=== PATIENT | male | born 1965 | race American Indian/Alaskan Native ===

== ENCOUNTER 2021-07-02 09:56 | Inpatient (IN) | payer OTHER ==
[2021-07-02] MEDS ORDERED: SODIUM CHLORIDE 0.9% 1000 ML IV SOLN IV ONE (10:17)
--- NOTE | 2021-07-02 10:24 | Emergency Department Report ---
ED General Adult HPI - General Chief complaint: Dyspnea/Respdistress Stated complaint: SEPSIS/DIFFICULTY BREATHING Time Seen by Provider: 07/02/21 10:06 Source: patient, EMS Mode of arrival: Stretcher Limitations: No Limitations - History of Present Illness Initial comments: Patient is 56 years old male with a recent diagnosis of pancreatic cancer appro ximately 8 weeks ago. Patient brought to the emergency room via EMS from home for evaluation of fever chills and shortness of breath started 2 days ago. Patient stated that he is having cough. He denied any chest pain. Patient also denied any vomiting but stated that he is nauseated. Patient is currently on chemotherapy. -: days(s) Associated Symptoms: cough, fever/chills, shortness of breath - Related Data Allergies Allergy/AdvReac Type Severity Reaction Status Date / Time No Known Allergies Allergy Verified 07/02/21 10:03 ED Review of Systems ROS: Stated complaint: SEPSIS/DIFFICULTY BREATHING Other details as noted in HPI Comment: All other systems reviewed and negative Constitutional: chills. denies: fever Respiratory: cough, shortness of breath, SOB with exertion, SOB at rest Cardiovascular: palpitations. denies: chest pain Gastrointestinal: denies: abdominal pain, nausea, vomiting Musculoskeletal: denies: back pain Neurological: denies: headache, weakness ED Past Medical Hx - Past Medical History Previous Medical History?: Yes Hx Diabetes: Yes Hx of Cancer: Yes (PANCRETIC) ED Physical Exam - General Limitations: No Limitations General appearance: alert, in distress - Head Head exam: Present: atraumatic, normocephalic, normal inspection - Eye Eye exam: Present: normal appearance - ENT ENT exam: Present: mucous membranes dry - Neck Neck exam: Present: normal inspection, full ROM. Absent: tenderness, meningismus - Respiratory Respiratory exam: Present: respiratory distress, rales, decreased breath sounds - Cardiovascular Cardiovascular Exam: Present: tachycardia - GI/Abdominal GI/Abdominal exam: Present: soft, normal bowel sounds. Absent: distended, tenderness, guarding, rebound, rigid, organomegaly, mass, bruit, pulsatile mass, hernia - Extremities Exam Extremities exam: Present: normal inspection, full ROM, normal capillary refill. Absent: tenderness - Back Exam Back exam: Present: normal inspection, full ROM. Absent: CVA tenderness (R), CVA tenderness (L) - Neurological Exam Neurological exam: Present: alert, oriented X3, CN II-XII intact, normal gait, reflexes normal. Absent: motor sensory deficit - Psychiatric Psychiatric exam: Present: normal mood - Skin Skin exam: Present: warm, intact, normal color ED Course Vital Signs 07/02/21 07/02/21 07/02/21 10:02 10:14 10:16 Temperature 99.7 F H Pulse Rate 125 H 126 H Respiratory 28 H 28 H Rate Blood Pressure Blood Pressure 108/66 [Right] O2 Sat by Pulse 100 98 98 Oximetry 07/02/21 07/02/21 10:30 10:38 Temperature 100.7 F H Pulse Rate 116 H 125 H Respiratory 22 24 Rate Blood Pressure 98/63 Blood Pressure 98/63 [Right] O2 Sat by Pulse 98 99 Oximetry ED Medical Decision Making - Lab Data Result diagrams: 07/02/21 10:29 07/02/21 10:29 - Radiology Data Radiology results: report reviewed - Medical Decision Making Patient is 56 years old male with a recent diagnosis of pancreatic cancer approximately 8 weeks ago. Patient brought to the emergency room via EMS from home for evaluation of fever chills and shortness of breath started 2 days ago. Patient stated that he is having cough. He denied any chest pain. Patient also denied any vomiting but stated that he is nauseated. Patient is currently on chemotherapy. Patient found to be tachycardic, febrile and hypotensive. Sepsis protocol immediately initiated. Patient started on normal saline 30 mill per KG and patient received Zosyn. Chest x-ray showed pneumonia. Labs reviewed and showed a lactic acid of 4.2. I spoke to [facility] Dr. Landon, she advised to admit the patient to [facility] and they will follow up with the patient in the morning. I discussed the patient with Dr. Gayle, he agreed to admit the patient to medical service for further management. Critical Care Time: Yes Critical care time in (mins) excluding proc time.: 35 Critical care attestation.: If time is entered above; I have spent that time in minutes in the direct care of this critically ill patient, excluding procedure time. ED Disposition Clinical Impression: Acute sepsis, Pneumonia Disposition: 09 ADMITTED INPATIENT Is pt being admited?: Yes Condition: Stable Instructions: Bacterial Pneumonia (ED)
[2021-07-02 10:52] LABS: Hematocrit 21.5 % (35.5-45.6); Mean Corpuscular HGB Conc 32 % (32-34); Mean Corpuscular Volume 75 fl (84-94); Platelet Count 373 K/mm3 (140-440); Red Blood Count 2.86 M/mm3 (3.65-5.03)
--- NOTE | 2021-07-02 10:56 | XRay Report ---
CHEST 1 VIEW INDICATION: fever, SOB. COMPARISON: None. FINDINGS: Support devices: Right-sided port tip projects over the SVC/right atrial junction. Heart: Normal. Lungs/Pleura: There is mild, somewhat patchy airspace disease in the right lung base. Lungs are other rush clear. No significant effusion, no pneumothorax. IMPRESSION: 1. Mild, somewhat patchy right lower lung opacities are concerning for mild pneumonia. Signer Name: Chris Washington MD Signed: 07/02/2021 10:49 AM Workstation Name: [id number]
[2021-07-02 11:13] LABS: Red Cell Distribution Width 20.7 % (13.2-15.2)
[2021-07-02] MEDS ORDERED: PIPERACILLIN/TAZOBACTAM 3.375 3.375 GM/50 ML BAG IV ONE (11:38)
[2021-07-02 11:48] LABS: Anisocytosis 1+; Basophils % (Manual) 0 % (0.0-1.8); Eosinophils % (Manual) 0 % (0.0-4.3); Hypochromasia 1+; Total Cells Counted 100
[2021-07-02 11:49] LABS: Platelet Estimate Consistent w Auto
[2021-07-02 12:00] LABS: Alanine Aminotransferase 14 units/L (7-56); Albumin 2.7 g/dL (3.9-5); BUN/Creatinine Ratio 19; Blood Urea Nitrogen 17 mg/dL (9-20); Hemolysis Index 2
[2021-07-02] MEDS ORDERED: ACETAMINOPHEN 500 MG TAB PO ONE (12:10)
[2021-07-02] MEDS ORDERED: VANCOMYCIN/NS 1 GM/250 ML 1 GM/250 ML BAG IV ONE (12:14)
[2021-07-02] MEDS ORDERED: ACETAMINOPHEN 325 MG TAB PO PRN (12:25)
--- NOTE | 2021-07-02 12:25 | History and Physical Report ---
History of Present Illness Chief complaint: I cannot breathe and I have fever and I feel weak History of present illness: 56 YO Male with Pancreatic Cancer currently undergoing pallative chemotherapy, DM, Malnutrition presents to ED for evaluation. Patient reports "I cannot breathe, I have fever, and I just feel weak". Patient states that he has experienced shortness of breath, generalized weakness and subjective fever over the past 1 week with persistent and worsening symptoms over the past 2 days. Patient acknowledges productive cough of clear sputum. EMS was notified and upon arrival the patient was found to be in distress and subsequently transported to [facility] for further care and evaluation of the aforementioned symptoms. The patient was seen and evaluated in the emergency department. All lab and imaging studies reviewed. Patient was found to have fever to 101.7 F tachycardia with a heart rate in the 120s and respiratory rate in the 30s as well as a systolic blood pressure in the 90s. Chest x-ray revealed pneumonia complicated by sepsis. Patient also found to have acidosis, malnutrition, and hyponatremia. Patient admitted to medical floor and initiated on pneumonia protocol as well as sepsis protocol. Patient acknowledges fever but denies shaking chills, chest pain, skin rash, recent contact, known exposure to COVID- 19. No prior admission for review. All medication listed at time of admission has been reconciled. Advanced care planning conducted in ED. Past History Past Medical History: cancer, diabetes Past Surgical History: No surgical history, Other (Reviewed) Social history: , lives with family. denies: smoking, alcohol abuse, prescription drug abuse Family history: hypertension Medications and Allergies Allergies Allergy/AdvReac Type Severity Reaction Status Date / Time No Known Allergies Allergy Verified 07/02/21 10:03 Home Medications Medication Instructions Recorded Confirmed Last Taken Type HYDROcodone/APAP 7.5-325 [[place] 1 tab PO TID 07/02/21 07/02/21 Unknown History 7.5-325 mg TAB] Ibuprofen [Motrin] 600 mg PO Q8H PRN 07/02/21 07/02/21 Unknown History Iron 65 mg PO DAILY 07/02/21 07/02/21 Unknown History megestroL [Megace] 40 mg PO QID 07/02/21 07/02/21 Unknown History oxyCODONE ER [oxyCONTIN ER] 10 mg PO QHS 07/02/21 07/02/21 Unknown History Active Meds: Active Medications Vancomycin HCl (Vancomycin/Ns 1 Gm/250 Ml) 1 gm in 250 mls @ 167.007 mls/hr IV ONCE ONE; Protocol Stop: 07/02/21 13:43 Review of Systems Constitutional: fever, fatigue, weakness, malaise Ears, nose, mouth and throat: no ear pain, no ear discharge, no decreased hearing, no nose pain, no nasal congestion Respiratory: cough, shortness of breath Gastrointestinal: no abdominal pain, no nausea, no vomiting, no diarrhea Genitourinary Male: no hematuria, no flank pain, no discharge, no urinary frequency, no nocturia Rectal: no pain, no incontinence, no bleeding Musculoskeletal: no neck stiffness, no neck pain, no shooting arm pain, no arm numbness/tingling, no shooting leg pain Integumentary: no rash, no pruritis, no redness, no sores, no wounds, no jaundice, no boils Neurological: no head injury, no transient paralysis, no parathesias, no numbness, no seizures Psychiatric: no anxiety, no memory loss, no sleep disturbances, no hypersomnia, no change in libido Endocrine: no cold intolerance, no polyphagia, no polydipsia, no polyuria, no nocturia Hematologic/Lymphatic: no easy bruising, no easy bleeding, no lymphedema Allergic/Immunologic: no allergic rhinitis, no wheezing, no anaphylaxis Exam - Constitutional Vitals: Temp Pulse Resp BP Pulse Ox 100.7 F H 125 H 24 98/63 99 07/02/21 10:38 07/02/21 10:38 07/02/21 10:38 07/02/21 10:38 07/02/21 10:38 General appearance: Present: mild distress, cachectic - EENT Eyes: Present: PERRL ENT: hearing intact, clear oral mucosa - Neck Neck: Present: supple, normal ROM - Respiratory Respiratory effort: normal Respiratory: bilateral: CTA - Cardiovascular Heart Sounds: Present: S1 & S2. Absent: rub, click - Extremities Extremities: pulses symmetrical, No edema Peripheral Pulses: within normal limits - Abdominal General gastrointestinal: Present: soft, non-tender, non-distended, normal bowel sounds Localized gastrointestinal: tender: epigastric periumbilical Male genitourinary: Present: normal - Integumentary Integumentary: Present: clear, warm, dry - Musculoskeletal Musculoskeletal: generalized weakness - Psychiatric Psychiatric: appropriate mood/affect, intact judgment & insight - Neurologic Neurologic: CNII-XII intact, moves all extremities Results - Labs CBC & Chem 7: 07/02/21 10:29 07/02/21 10:29 Labs: Abnormal lab results 07/02/21 07/02/21 07/02/21 Range/Units 10:29 10:29 10:29 RBC 2.86 L (3.65-5.03) M/mm3 Hgb 7.0 L (11.8-15.2) gm/dl Hct 21.5 L (35.5-45.6) % MCV 75 L (84-94) fl MCH 24 L (28-32) pg RDW 20.7 H (13.2-15.2) % Seg Neuts % (Manual) 95.0 H (40.0-70.0) % Lymphocytes % (Manual) 1.0 L (13.4-35.0) % Seg Neutrophils # Man 9.4 H (1.8-7.7) K/mm3 Lymphocytes # (Manual) 0.1 L (1.2-5.4) K/mm3 Sodium 136 L (137-145) mmol/L Carbon Dioxide 19 L (22-30) mmol/L Glucose 147 H (75-100) mg/dL Lactic Acid 4.40 H* (0.7-2.0) mmol/L Alkaline Phosphatase 226 H (35-129) units/L Albumin 2.7 L (3.9-5) g/dL Assessment and Plan - Patient Problems (1) Acute sepsis Current Visit: No Status: Acute Plan to address problem: Sepsis protocol: Chest x-ray, CBC, urinalysis, IV fluid resuscitation therapy, IV antibiotic therapy, serial lactic acid level, maintain mean arterial pressure greater than equal to 65, monitor urine output every shift, monitor fluid balance, blood cultures. (2) Pneumonia Current Visit: No Status: Acute Plan to address problem: Pneumonia protocol: Chest x-ray, CBC, CMP, IV antibiotic therapy, supplemental oxygen, pulse oximetry, nebulizer therapy, blood culture. (3) Pancreatic cancer Current Visit: Yes Status: Acute Plan to address problem: Supportive care. Outpatient oncology follow-up. Patient is currently undergoing palliative chemotherapy. (4) Malnutrition Current Visit: Yes Status: Acute Qualifiers: Protein-calorie malnutrition severity: mild Plan to address problem: Encourage increased protein intake, dietary supplementation (5) Diabetes Current Visit: Yes Status: Acute Plan to address problem: Consistent carbohydrate diet, Accu-Chek, insulin protocol, hypoglycemia protocol. (6) Hyponatremia syndrome Current Visit: Yes Status: Acute Plan to address problem: BMP, IV fluid resuscitation therapy, repeat BMP in AM. Monitor fluid balance. (7) Acidosis Current Visit: Yes Status: Acute Plan to address problem: IV fluid resuscitation therapy, BMP, repeat BMP in a.m. (8) DVT prophylaxis Current Visit: Yes Status: Acute Plan to address problem: SCD to bilateral lower extremities while in bed (9) Advance care planning Current Visit: Yes Status: Acute Plan to address problem: Disease education data, care plan discussed, diagnoses discussed, prognosis discussed, patient is full code. Patient acknowledges understanding prognosis patient acknowledges understanding and agreement with current care plan. +30 minutes.
[2021-07-02] MEDS ORDERED: ONDANSETRON 4 MG/2 ML INJ IV PRN (13:00)
[2021-07-02] MEDS ORDERED: ALBUTEROL 2.5 MG/3 ML NEBU IH PRN (13:00)
[2021-07-02] MEDS: CEFEPIME/NS 2 GM/100 ML 2 GM/100 ML BAG IV SCH (14:16)
[2021-07-02 20:42] LABS: Bacteria,Urine 1+ /HPF (Negative); Bilirubin,Urine NEG (Negative); Blood,Urine MOD (Negative); Color,Urine Yellow (Yellow); Mucus,Urine FEW /HPF; Urobilinogen,Urine < 2.0 mg/dL (<2.0)
[2021-07-03] MEDS: CEFEPIME/NS 2 GM/100 ML 2 GM/100 ML BAG IV SCH ×2 (01:17→15:00)
[2021-07-03] MEDS: HYDROmorphone 1 MG/1 ML INJ IV PRN ×3 (03:11→20:26)
[2021-07-03 07:58] LABS: Basophils % (Auto) 0.2 % (0.0-1.8); Eosinophils % (Auto) 0.4 % (0.0-4.3); Hemoglobin 6.1 gm/dl (11.8-15.2); Lymphocytes # (Auto) 1.9 K/mm3 (1.2-5.4); Lymphocytes % (Auto) 14.3 % (13.4-35.0); Mean Corpuscular HGB Conc 32 % (32-34); Mean Corpuscular Volume 76 fl (84-94); Monocytes # (Auto) 1.2 K/mm3 (0.0-0.8); Monocytes % (Auto) 8.9 % (0.0-7.3); Platelet Count 271 K/mm3 (140-440); Red Blood Count 2.53 M/mm3 (3.65-5.03)
[2021-07-03 08:05] LABS: Blood Urea Nitrogen 15 mg/dL (9-20); Calcium 8.3 mg/dL (8.4-10.2); Hemolysis Index 3
[2021-07-03 08:06] LABS: BUN/Creatinine Ratio 21
--- NOTE | 2021-07-03 08:24 | Progress Note ---
Assessment and Plan Assessment and plan: -- Acute sepsis/lactic acidosis Current Visit: No Status: Acute Sepsis protocol: Chest x-ray, CBC, urinalysis, IV fluid resuscitation therapy, IV antibiotic therapy, serial lactic acid level, maintain mean arterial pressure greater than equal to 65, monitor urine output every shift, monitor fluid balance, blood cultures. Sepsis criteria;fever, leukocytosis, tachycardia, pneumonia on chest x-ray Lactic acidosis, brief hypotension --Right lower lobe pneumonia Current Visit: No Status: Acute Pneumonia protocol: Chest x-ray, CBC, CMP, IV antibiotic therapy, supplemental oxygen, pulse oximetry, nebulizer therapy, blood culture. -- Pancreatic cancer Current Visit: Yes Status: Chronic Supportive care. Outpatient oncology follow-up. Patient is currently undergoing palliative chemotherapy. --Severe anemia; Hb 6.1 Current Visit: No Status: Acute Type and cross, transfuse 1 unit PRBC stat Closely monitor H&H transfuse additional PRBC as needed - severe protein calorie malnutrition Current Visit: Yes Status: Acute Nutrition supplements, nutrition consult --Severe hypoalbuminemia; albumin 2.7 Current Visit: No Status: Chronic Nutrition supplements, supportive care -- diabetes Current Visit: Yes Status: Chronic Consistent carbohydrate diet, Accu-Chek, insulin protocol, hypoglycemia protocol. --Hyponatremia syndrome/resolved Current Visit: Yes Status: Acute Sodium levels within normal limits today -- Lactic acidosis Current Visit: Yes Status: Acute Plan to address problem: IV fluid resuscitation therapy, BMP, repeat BMP in a.m. --Full code - DVT prophylaxis Current Visit: Yes Status: Acute Plan to address problem: SCD to bilateral lower extremities while in bed --Advance care planning Current Visit: Yes Status: Acute Plan to address problem: Disease education data, care plan discussed, diagnoses discussed, prognosis discussed, patient is full code. Patient acknowledges understanding prognosis patient acknowledges understanding and agreement with current care plan. +30 minutes. We will closely monitor the patient and adjust management as needed Plan of care reviewed with the patient and his nurse I called [place] physician at [phone] and discussed in detail patient's condition, tests and reports, treatment plan Dr. De Anda had some questions I answered all of them, requested us to update tomorrow and evaluate and transfer to their facility if needed. History Interval history: I have seen and examined the patient at the bedside Patient's chart and medications reviewed Patient is chronically ill looking cachectic Severe anemia with hemoglobin of 6.1 Patient complains of generalized weakness Vital signs noted Hospitalist Physical - Constitutional Vitals: Temp Pulse Resp BP Pulse Ox 98.2 F 79 18 92/61 98 07/03/21 05:34 07/03/21 05:34 07/03/21 05:34 07/03/21 05:34 07/03/21 05:34 General appearance: Present: mild distress, cachectic, disheveled, other (Malnourished chronically ill looking) - EENT Eyes: Present: PERRL, EOM intact - Neck Neck: Present: supple, normal ROM - Respiratory Respiratory effort: normal Respiratory: bilateral: diminished, negative: rales, rhonchi, wheezing - Cardiovascular Rhythm: regular Heart Sounds: Present: S1 & S2 - Extremities Extremities: no ischemia, No edema - Abdominal General gastrointestinal: soft, non-tender, non-distended, normal bowel sounds - Integumentary Integumentary: Present: clear, warm - Psychiatric Psychiatric: appropriate mood/affect, cooperative - Neurologic Neurologic: moves all extremities Results - Labs CBC & Chem 7: 07/03/21 07:06 07/03/21 07:06 Labs: Laboratory Last Values WBC 9.9 K/mm3 (4.5-11.0) 07/02/21 10:29 RBC 2.86 M/mm3 (3.65-5.03) L 07/02/21 10:29 Hgb 7.0 gm/dl (11.8-15.2) L 07/02/21 10:29 Hct 21.5 % (35.5-45.6) L 07/02/21 10:29 MCV 75 fl (84-94) L 07/02/21 10:29 MCH 24 pg (28-32) L 07/02/21 10:29 MCHC 32 % (32-34) 07/02/21 10:29 RDW 20.7 % (13.2-15.2) H 07/02/21 10:29 Plt Count 373 K/mm3 (140-440) 07/02/21 10:29 [place] % (Auto) 8.9 % (0.0-7.3) H 07/03/21 07:06 Eos % (Auto) 0.4 % (0.0-4.3) 07/03/21 07:06 [place] # (Auto) 1.2 K/mm3 (0.0-0.8) H 07/03/21 07:06 Eos # (Auto) 0.0 K/mm3 (0.0-0.4) 07/03/21 07:06 Baso # (Auto) 0.0 K/mm3 (0.0-0.1) 07/03/21 07:06 Add Manual Diff Complete 07/02/21 10:29 Total Counted 100 07/02/21 10:29 Seg Neutrophils % 76.2 % (40.0-70.0) H 07/03/21 07:06 Seg Neuts % (Manual) 95.0 % (40.0-70.0) H 07/02/21 10:29 Band Neutrophils % 0 % 07/02/21 10:29 Lymphocytes % (Manual) 1.0 % (13.4-35.0) L 07/02/21 10:29 Reactive Lymphs % (Man) 0 % 07/02/21 10:29 Monocytes % (Manual) 4.0 % (0.0-7.3) 07/02/21 10:29 Eosinophils % (Manual) 0 % (0.0-4.3) 07/02/21 10:29 Basophils % (Manual) 0 % (0.0-1.8) 07/02/21 10:29 Metamyelocytes % 0 % 07/02/21 10:29 Myelocytes % 0 % 07/02/21 10:29 Promyelocytes % 0 % 07/02/21 10:29 Blast Cells % 0 % 07/02/21 10:29 Nucleated RBC % Not Reportable 07/02/21 10:29 Seg Neutrophils # 9.9 K/mm3 (1.8-7.7) H 07/03/21 07:06 Seg Neutrophils # Man 9.4 K/mm3 (1.8-7.7) H 07/02/21 10:29 Band Neutrophils # 0.0 K/mm3 07/02/21 10:29 Lymphocytes # (Manual) 0.1 K/mm3 (1.2-5.4) L 07/02/21 10:29 Abs React Lymphs (Man) 0.0 K/mm3 07/02/21 10:29 Monocytes # (Manual) 0.4 K/mm3 (0.0-0.8) 07/02/21 10:29 Eosinophils # (Manual) 0.0 K/mm3 (0.0-0.4) 07/02/21 10:29 Basophils # (Manual) 0.0 K/mm3 (0.0-0.1) 07/02/21 10:29 Metamyelocytes # 0.0 K/mm3 07/02/21 10:29 Myelocytes # 0.0 K/mm3 07/02/21 10:29 Promyelocytes # 0.0 K/mm3 07/02/21 10:29 Blast Cells # 0.0 K/mm3 07/02/21 10:29 WBC Morphology Not Reportable 07/02/21 10:29 Hypersegmented Neuts Not Reportable 07/02/21 10:29 Hyposegmented Neuts Not Reportable 07/02/21 10:29 Hypogranular Neuts Not Reportable 07/02/21 10:29 Smudge Cells Not Reportable 07/02/21 10:29 Toxic Granulation Not Reportable 07/02/21 10:29 Toxic Vacuolation Not Reportable 07/02/21 10:29 Dohle Bodies Not Reportable 07/02/21 10:29 Pelger-Huet Anomaly Not Reportable 07/02/21 10:29 Graham Rods Not Reportable 07/02/21 10:29 Platelet Estimate Consistent w auto 07/02/21 10:29 Clumped Platelets Not Reportable 07/02/21 10:29 Plt Clumps, EDTA Not Reportable 07/02/21 10:29 Large Platelets Not Reportable 07/02/21 10:29 Giant Platelets Not Reportable 07/02/21 10:29 Platelet Satelliting Not Reportable 07/02/21 10:29 Plt Morphology Comment Not Reportable 07/02/21 10:29 RBC Morphology Not Reportable 07/02/21 10:29 Dimorphic RBCs Not Reportable 07/02/21 10:29 Polychromasia Not Reportable 07/02/21 10:29 Hypochromasia 1+ 07/02/21 10:29 Poikilocytosis Not Reportable 07/02/21 10:29 Anisocytosis 1+ 07/02/21 10:29 Microcytosis Not Reportable 07/02/21 10:29 Macrocytosis Not Reportable 07/02/21 10:29 Spherocytes Not Reportable 07/02/21 10:29 Pappenheimer Bodies Not Reportable 07/02/21 10:29 Sickle Cells Not Reportable 07/02/21 10:29 Target Cells Not Reportable 07/02/21 10:29 Tear Drop Cells Not Reportable 07/02/21 10:29 Ovalocytes Not Reportable 07/02/21 10:29 Helmet Cells Not Reportable 07/02/21 10:29 Snow-Plum Bodies Not Reportable 07/02/21 10:29 [place] Rings Not Reportable 07/02/21 10:29 Gerard Cells Not Reportable 07/02/21 10:29 Bite Cells Not Reportable 07/02/21 10:29 Crenated Cell Not Reportable 07/02/21 10:29 Elliptocytes Not Reportable 07/02/21 10:29 Acanthocytes (Spur) Not Reportable 07/02/21 10:29 Rouleaux Not Reportable 07/02/21 10:29 Hemoglobin C Crystals Not Reportable 07/02/21 10:29 Schistocytes Not Reportable 07/02/21 10:29 Malaria parasites Not Reportable 07/02/21 10:29 Branden Bodies Not Reportable 07/02/21 10:29 Hem Pathologist Commnt No 07/02/21 10:29 Sodium 140 mmol/L (137-145) 07/03/21 07:06 Potassium 4.4 mmol/L (3.6-5.0) 07/03/21 07:06 Chloride 106.3 mmol/L (98-107) 07/03/21 07:06 Carbon Dioxide 23 mmol/L (22-30) 07/03/21 07:06 Anion Gap 15 mmol/L 07/03/21 07:06 BUN 15 mg/dL (9-20) 07/03/21 07:06 Creatinine 0.7 mg/dL (0.8-1.3) L 07/03/21 07:06 Estimated GFR > 60 ml/min 07/03/21 07:06 BUN/Creatinine Ratio 21 % 07/03/21 07:06 Glucose 91 mg/dL (75-100) 07/03/21 07:06 Lactic Acid 2.50 mmol/L (0.7-2.0) H* 07/02/21 18:46 Calcium 8.3 mg/dL (8.4-10.2) L 07/03/21 07:06 Total Bilirubin 0.40 mg/dL (0.1-1.2) 07/02/21 10:29 AST 27 units/L (5-40) 07/02/21 10:29 ALT 14 units/L (7-56) 07/02/21 10:29 Alkaline Phosphatase 226 units/L (35-129) H 07/02/21 10:29 Total Protein 6.7 g/dL (6.3-8.2) 07/02/21 10:29 Albumin 2.7 g/dL (3.9-5) L 07/02/21 10:29 Albumin/Globulin Ratio 0.7 % 07/02/21 10:29 Urine Color Yellow (Yellow) 07/02/21 Unknown Urine Turbidity Clear (Clear) 07/02/21 Unknown Urine pH 5.0 (5.0-7.0) 07/02/21 Unknown Ur Specific [place] 1.020 (1.003-1.030) 07/02/21 Unknown Urine Protein 30 mg/dl mg/dL (Negative) 07/02/21 Unknown Urine Glucose (UA) Neg mg/dL (Negative) 07/02/21 Unknown Urine Ketones Neg mg/dL (Negative) 07/02/21 Unknown Urine Blood Mod (Negative) 07/02/21 Unknown Urine Nitrite Neg (Negative) 07/02/21 Unknown Urine Bilirubin Neg (Negative) 07/02/21 Unknown Urine Urobilinogen < 2.0 mg/dL (<2.0) 07/02/21 Unknown Ur Leukocyte Esterase Neg (Negative) 07/02/21 Unknown Urine WBC (Auto) 2.0 /HPF (0.0-6.0) 07/02/21 Unknown Urine RBC (Auto) 1.0 /HPF (0.0-6.0) 07/02/21 Unknown Urine Bacteria (Auto) 1+ /HPF (Negative) 07/02/21 Unknown Urine Mucus Few /HPF 07/02/21 Unknown Blood Type A POSITIVE 07/02/21 15:26 Antibody Screen Negative 07/02/21 15:26 Microbiology: Microbiology 07/02/21 10:29 Peripheral/Venous Blood Culture - Preliminary Culture in Progress 07/02/21 10:59 Peripheral/Venous Blood Culture - Preliminary Culture in Progress Garcia/IV: Voiding Method Urinal Active Medications - Current Medications Current Medications: Generic Name Dose Route Start Last Admin Trade Name Freq PRN Reason Stop Dose Admin Acetaminophen 650 mg 07/02/21 13:00 Acetaminophen 325 Mg Tab PO Q4H PRN Pain MILD(1-3)/Fever >100.5/HELMS Albuterol 2.5 mg 07/02/21 13:00 Albuterol 2.5 Mg/3 Ml Nebu IH Q4HRT PRN Shortness Of Breath Hydromorphone HCl 0.25 mg 07/02/21 13:00 07/03/21 06:34 Hydromorphone 1 Mg/1 Ml Inj IV 0.25 mg Q4H PRN Administration Pain, Moderate (4-6) Hydromorphone HCl 0.5 mg 07/02/21 13:00 Hydromorphone 1 Mg/1 Ml Inj IV Q3H PRN Pain , Severe (7-10) Cefepime HCl 2 gm in 100 mls @ 200 mls/hr 07/02/21 13:00 07/03/21 03:09 Cefepime/Ns 2 Gm/100 Ml IV Infused Q12H YARELY Infusion Protocol Morphine Sulfate 2 mg 07/02/21 13:00 Morphine 2 Mg/1 Ml Inj IV Q4H PRN Pain, Moderate (4-6) Ondansetron HCl 4 mg 07/02/21 13:00 Ondansetron 4 Mg/2 Ml Inj IV Q8H PRN Nausea And Vomiting Sodium Chloride 10 ml 07/02/21 13:00 07/02/21 22:45 Sodium Chloride 0.9% 10 Ml Flush Syringe IV 10 ml BID YARELY Administration Sodium Chloride 10 ml 07/02/21 13:00 Sodium Chloride 0.9% 10 Ml Flush Syringe IV PRN PRN LINE FLUSH
[2021-07-03 08:38] LABS: Hematocrit 19.1 % (35.5-45.6)
[2021-07-03 08:43] LABS: Red Cell Distribution Width 20.9 % (13.2-15.2)
[2021-07-03] MEDS ORDERED: SODIUM CHLORIDE 0.9% 500 ML 500 ML IV SCH (09:30)
[2021-07-03] MEDS: MEGESTROL 40 MG TAB PO SCH ×4 (09:53→21:45)
[2021-07-03] MEDS: ACETAMINOPHEN 325 MG TAB PO PRN ×2 (11:51→22:41)
[2021-07-03] MEDS: SODIUM CHLORIDE 0.9% 1000 ML 1,000 ML IV SCH ×2 (15:00→23:36)
[2021-07-03] MEDS: MORPHINE 2 MG/1 ML INJ IV PRN ×2 (17:27→23:35)
--- NOTE | 2021-07-03 17:58 | Event Note ---
Date: 07/03/21 I called [place] physician at [phone] and discussed in detail patient's condition, tests and reports, treatment plan Dr. Gallego had some questions I answered all of them, requested us to update tomorrow and evaluate and transfer to their facility if needed.
[2021-07-03 21:22] LABS: Hemoglobin 6.1 gm/dl (11.8-15.2)
[2021-07-03 21:28] LABS: Hematocrit 19.3 % (35.5-45.6)
[2021-07-03] MEDS ORDERED: SODIUM CHLORIDE 0.9% 500 ML 500 ML IV ONE (21:52)
[2021-07-04] MEDS: CEFEPIME/NS 2 GM/100 ML 2 GM/100 ML BAG IV SCH ×2 (00:26→12:35)
[2021-07-04] MEDS ORDERED: SODIUM CHLORIDE 0.9% 500 ML 500 ML ONE (01:43)
--- NOTE | 2021-07-04 07:29 | Progress Note ---
Assessment and Plan Assessment and plan: -- Acute sepsis due to right lower lobe pneumonia Current Visit: No Status: Acute Sepsis protocol: Chest x-ray, CBC, urinalysis, IV fluid resuscitation therapy, Continue cefepime , serial lactic acid level[improved], maintain mean arterial pressure greater than equal to 65, monitor urine output every shift, monitor fluid balance, blood cultures. Sepsis criteria;fever, leukocytosis, tachycardia, pneumonia on chest x-ray Lactic acidosis, brief hypotension, UTI per UA --Right lower lobe pneumonia Current Visit: No Status: Acute Pneumonia protocol: Continue IV cefepime, follow cultures Saturating well on room air Home O2 evaluation at discharge Follow-up chest x-ray today --h/o Pancreatic cancer Current Visit: Yes Status: Chronic Supportive care. Outpatient oncology follow-up. Patient is currently undergoing palliative chemotherapy. --Severe anemia; Hb 6.1 -9.5 Current Visit: No Status: Acute Received total 2 units of PRBC Follow H&H today, additional PRBC transfusion as needed -- severe protein calorie malnutrition Current Visit: Yes Status: Acute Nutrition supplements, nutrition consult --Severe hypoalbuminemia; albumin 2.7 Current Visit: No Status: Chronic Nutrition supplements, supportive care -- diabetes Current Visit: Yes Status: Chronic Consistent carbohydrate diet, Accu-Chek, insulin protocol, hypoglycemia protocol. --Hyponatremia syndrome/resolved Current Visit: Yes Status: Acute Sodium levels within normal limits today -- Lactic acidosis; resolved Current Visit: Yes Status: Acute Trending down 4.4-2.5-1.10 Treat the underlying sepsis IV fluid resuscitation therapy, --Full code status - DVT prophylaxis Current Visit: Yes Status: Acute Plan to address problem: SCD to bilateral lower extremities while in bed --Advance care planning Current Visit: Yes Status: Acute Plan to address problem: Disease education data, care plan discussed, diagnoses discussed, prognosis discussed, patient is full code. Patient acknowledges understanding prognosis patient acknowledges understanding and agreement with current care plan. +30 minutes. We will closely monitor the patient and adjust management as needed Plan of care reviewed with the patient and his nurse 07/03: I called [place] physician at [phone] and discussed in detail patient's condition, tests and reports, treatment plan had some questions I answered all of them, requested us to update tomorrow. 07/04; received total 2 units PRBC, Hb improved from 6.1-8.9, complains of from some generalized body pains Vital signs noted, follow-up chest x-ray monitor improvement of pneumonia. Called [place] physician, on-call physician is busy with a critical patient, she requested to update on the patient tomorrow History Interval history: I have seen and examined the patient at the bedside Patient's chart and medications reviewed Patient feels slightly better,Denies nausea vomiting Hemoglobin improved From 6.1- 8.9 after receiving 2 units of PRBC transfusion patient is saturating well on room air Complains of generalized body pains vital signs noted Hospitalist Physical - Constitutional Vitals: Temp Pulse Resp BP Pulse Ox 99.4 F 76 18 127/84 99 07/04/21 05:21 07/04/21 05:21 07/04/21 05:21 07/04/21 05:21 07/04/21 05:21 General appearance: Present: mild distress, cachectic, disheveled, other (Mal nourished chronically ill looking) - EENT Eyes: Present: PERRL, EOM intact - Neck Neck: Present: supple, normal ROM - Respiratory Respiratory effort: normal Respiratory: bilateral: diminished, rhonchi, negative: rales, wheezing - Cardiovascular Rhythm: regular Heart Sounds: Present: S1 & S2 - Extremities Extremities: no ischemia, No edema - Abdominal General gastrointestinal: soft, non-tender, non-distended, normal bowel sounds - Integumentary Integumentary: Present: clear, warm - Psychiatric Psychiatric: appropriate mood/affect, cooperative - Neurologic Neurologic: moves all extremities Results - Labs CBC & Chem 7: 07/04/21 07:15 07/03/21 07:06 Labs: Laboratory Last Values WBC 13.0 K/mm3 (4.5-11.0) H 07/03/21 07:06 RBC 2.53 M/mm3 (3.65-5.03) L 07/03/21 07:06 Hgb 6.1 gm/dl (11.8-15.2) L 07/03/21 21:04 Hct 19.3 % (35.5-45.6) L* 07/03/21 21:04 MCV 76 fl (84-94) L 07/03/21 07:06 MCH 24 pg (28-32) L 07/03/21 07:06 MCHC 32 % (32-34) 07/03/21 07:06 RDW 20.9 % (13.2-15.2) H 07/03/21 07:06 Plt Count 271 K/mm3 (140-440) 07/03/21 07:06 Lymph % (Auto) 14.3 % (13.4-35.0) 07/03/21 07:06 Power % (Auto) 8.9 % (0.0-7.3) H 07/03/21 07:06 Eos % (Auto) 0.4 % (0.0-4.3) 07/03/21 07:06 Baso % (Auto) 0.2 % (0.0-1.8) 07/03/21 07:06 Lymph # (Auto) 1.9 K/mm3 (1.2-5.4) 07/03/21 07:06 Power # (Auto) 1.2 K/mm3 (0.0-0.8) H 07/03/21 07:06 Eos # (Auto) 0.0 K/mm3 (0.0-0.4) 07/03/21 07:06 Baso # (Auto) 0.0 K/mm3 (0.0-0.1) 07/03/21 07:06 Add Manual Diff Complete 07/02/21 10:29 Total Counted 100 07/02/21 10:29 Seg Neutrophils % 76.2 % (40.0-70.0) H 07/03/21 07:06 Seg Neuts % (Manual) 95.0 % (40.0-70.0) H 07/02/21 10:29 Band Neutrophils % 0 % 07/02/21 10:29 Lymphocytes % (Manual) 1.0 % (13.4-35.0) L 07/02/21 10:29 Reactive Lymphs % (Man) 0 % 07/02/21 10:29 Monocytes % (Manual) 4.0 % (0.0-7.3) 07/02/21 10:29 Eosinophils % (Manual) 0 % (0.0-4.3) 07/02/21 10:29 Basophils % (Manual) 0 % (0.0-1.8) 07/02/21 10:29 Metamyelocytes % 0 % 07/02/21 10:29 Myelocytes % 0 % 07/02/21 10:29 Promyelocytes % 0 % 07/02/21 10: Blast Cells % 0 % 07/02/21 10:29 Nucleated RBC % Not Reportable 07/02/21 10:29 Seg Neutrophils # 9.9 K/mm3 (1.8-7.7) H 07/03/21 07:06 Seg Neutrophils # Man 9.4 K/mm3 (1.8-7.7) H 07/02/21 10:29 Band Neutrophils # 0.0 K/mm3 07/02/21 10:29 Lymphocytes # (Manual) 0.1 K/mm3 (1.2-5.4) L 07/02/21 10:29 Abs React Lymphs (Man) 0.0 K/mm3 07/02/21 10:29 Monocytes # (Manual) 0.4 K/mm3 (0.0-0.8) 07/02/21 10: Eosinophils # (Manual) 0.0 K/mm3 (0.0-0.4) 07/02/21 10:29 Basophils # (Manual) 0.0 K/mm3 (0.0-0.1) 07/02/21 10:29 Metamyelocytes # 0.0 K/mm3 07/02/21 10:29 Myelocytes # 0.0 K/mm3 07/02/21 10:29 Promyelocytes # 0.0 K/mm3 07/02/21 10:29 Blast Cells # 0.0 K/mm3 07/02/21 10:29 WBC Morphology Not Reportable 07/02/21 10:29 Hypersegmented Neuts Not Reportable 07/02/21 10:29 Hyposegmented Neuts Not Reportable 07/02/21 10:29 Hypogranular Neuts Not Reportable 07/02/21 10:29 Smudge Cells Not Reportable 07/02/21 10:29 Toxic Granulation Not Reportable 07/02/21 10:29 Toxic Vacuolation Not Reportable 07/02/21 10:29 Dohle Bodies Not Reportable 07/02/21 10:29 Pelger-Huet Anomaly Not Reportable 07/02/21 10:29 Graham Rods Not Reportable 07/02/21 10:29 Platelet Estimate Consistent w auto 07/02/21 10:29 Clumped Platelets Not Reportable 07/02/21 10:29 Plt Clumps, EDTA Not Reportable 07/02/21 10:29 Large Platelets Not Reportable 07/02/21 10:29 Giant Platelets Not Reportable 07/02/21 10:29 Platelet Satelliting Not Reportable 07/02/21 10:29 Plt Morphology Comment Not Reportable 07/02/21 10:29 RBC Morphology Not Reportable 07/02/21 10:29 Dimorphic RBCs Not Reportable 07/02/21 10:29 Polychromasia Not Reportable 07/02/21 10:29 Hypochromasia 1+ 07/02/21 10:29 Poikilocytosis Not Reportable 07/02/21 10:29 Anisocytosis 1+ 07/02/21 10:29 Microcytosis Not Reportable 07/02/21 10:29 Macrocytosis Not Reportable 07/02/21 10:29 Spherocytes Not Reportable 07/02/21 10:29 Pappenheimer Bodies Not Reportable 07/02/21 10:29 Sickle Cells Not Reportable 07/02/21 10:29 Target Cells Not Reportable 07/02/21 10:29 Tear Drop Cells Not Reportable 07/02/21 10:29 Ovalocytes Not Reportable 07/02/21 10:29 Helmet Cells Not Reportable 07/02/21 10:29 Snow-Claude Bodies Not Reportable 07/02/21 10:29 Zenda Rings Not Reportable 07/02/21 10:29 Gerard Cells Not Reportable 07/02/21 10:29 Bite Cells Not Reportable 07/02/21 10:29 Crenated Cell Not Reportable 07/02/21 10:29 Elliptocytes Not Reportable 07/02/21 10:29 Acanthocytes (Spur) Not Reportable 07/02/21 10:29 Rouleaux Not Reportable 07/02/21 10:29 Hemoglobin C Crystals Not Reportable 07/02/21 10:29 Schistocytes Not Reportable 07/02/21 10:29 Malaria parasites Not Reportable 07/02/21 10:29 Branden Bodies Not Reportable 07/02/21 10:29 Hem Pathologist Commnt No 07/02/21 10:29 Sodium 140 mmol/L (137-145) 07/03/21 07:06 Potassium 4.4 mmol/L (3.6-5.0) 07/03/21 07:06 Chloride 106.3 mmol/L (98-107) 07/03/21 07:06 Carbon Dioxide 23 mmol/L (22-30) 07/03/21 07:06 Anion Gap 15 mmol/L 07/03/21 07:06 BUN 15 mg/dL (9-20) 07/03/21 07:06 Creatinine 0.7 mg/dL (0.8-1.3) L 07/03/21 07:06 Estimated GFR > 60 ml/min 07/03/21 07:06 BUN/Creatinine Ratio 21 % 07/03/21 07:06 Glucose 91 mg/dL (75-100) 07/03/21 07:06 Lactic Acid 1.10 mmol/L (0.7-2.0) 07/03/21 08:48 Calcium 8.3 mg/dL (8.4-10.2) L 07/03/21 07:06 Total Bilirubin 0.40 mg/dL (0.1-1.2) 07/02/21 10:29 AST 27 units/L (5-40) 07/02/21 10:29 ALT 14 units/L (7-56) 07/02/21 10:29 Alkaline Phosphatase 226 units/L (35-129) H 07/02/21 10:29 Total Protein 6.7 g/dL (6.3-8.2) 07/02/21 10:29 Albumin 2.7 g/dL (3.9-5) L 07/02/21 10:29 Albumin/Globulin Ratio 0.7 % 07/02/21 10:29 Urine Color Yellow (Yellow) 07/02/21 Unknown Urine Turbidity Clear (Clear) 07/02/21 Unknown Urine pH 5.0 (5.0-7.0) 07/02/21 Unknown Ur Specific [place] 1.020 (1.003-1.030) 07/02/21 Unknown Urine Protein 30 mg/dl mg/dL (Negative) 07/02/21 Unknown Urine Glucose (UA) Neg mg/dL (Negative) 07/02/21 Unknown Urine Ketones Neg mg/dL (Negative) 07/02/21 Unknown Urine Blood Mod (Negative) 07/02/21 Unknown Urine Nitrite Neg (Negative) 07/02/21 Unknown Urine Bilirubin Neg (Negative) 07/02/21 Unknown Urine Urobilinogen < 2.0 mg/dL (<2.0) 07/02/21 Unknown Ur Leukocyte Esterase Neg (Negative) 07/02/21 Unknown Urine WBC (Auto) 2.0 /HPF (0.0-6.0) 07/02/21 Unknown Urine RBC (Auto) 1.0 /HPF (0.0-6.0) 07/02/21 Unknown Urine Bacteria (Auto) 1+ /HPF (Negative) 07/02/21 Unknown Urine Mucus Few /HPF 07/02/21 Unknown Blood Type A POSITIVE 07/03/21 10:00 Antibody Screen Negative 07/03/21 10:00 Crossmatch See Detail 07/03/21 10:00 Microbiology: Microbiology 07/02/21 10:59 Peripheral/Venous Blood Culture - Preliminary 07/02/21 10:29 Peripheral/Venous Blood Culture - Preliminary Garcia/IV: Voiding Method Toilet Active Medications - Current Medications Current Medications: Generic Name Dose Route Start Last Admin Trade Name Freq PRN Reason Stop Dose Admin Acetaminophen 650 mg 07/02/21 13:00 07/03/21 22:41 Acetaminophen 325 Mg Tab PO 650 mg Q4H PRN Administration Pain MILD(1-3)/Fever >100.5/HELMS Albuterol 2.5 mg 07/02/21 13:00 Albuterol 2.5 Mg/3 Ml Nebu IH Q4HRT PRN Shortness Of Breath Hydromorphone HCl 0.25 mg 07/02/21 13:00 07/03/21 06:34 Hydromorphone 1 Mg/1 Ml Inj IV 0.25 mg Q4H PRN Administration Pain, Moderate (4-6) Hydromorphone HCl 0.5 mg 07/02/21 13:00 07/03/21 20:26 Hydromorphone 1 Mg/1 Ml Inj IV 0.5 mg Q3H PRN Administration Pain , Severe (7-10) Cefepime HCl 2 gm in 100 mls @ 200 mls/hr 07/02/21 13:00 07/04/21 00:26 Cefepime/Ns 2 Gm/100 Ml IV 200 mls/hr Q12H YARELY Administration Protocol Sodium Chloride 1,000 mls @ 100 mls/hr 07/03/21 09:00 07/03/21 23:36 Nacl 0.9% 1000 Ml IV 100 mls/hr DIRECT YARELY Administration Megestrol Acetate 40 mg 07/03/21 10:00 07/03/21 21:45 Megestrol 40 Mg Tab PO 40 mg QID YARELY Administration Morphine Sulfate 2 mg 07/02/21 13:00 07/03/21 23:35 Morphine 2 Mg/1 Ml Inj IV 2 mg Q4H PRN Administration Pain, Moderate (4-6) Ondansetron HCl 4 mg 07/02/21 13:00 Ondansetron 4 Mg/2 Ml Inj IV Q8H PRN Nausea And Vomiting Sodium Chloride 10 ml 07/02/21 13:00 07/04/21 02:16 Sodium Chloride 0.9% 10 Ml Flush Syringe IV Not Given BID YARELY Sodium Chloride 10 ml 07/02/21 13:00 Sodium Chloride 0.9% 10 Ml Flush Syringe IV PRN PRN LINE FLUSH
[2021-07-04 07:44] LABS: Basophils % (Auto) 0.2 % (0.0-1.8); Eosinophils % (Auto) 0.2 % (0.0-4.3); Hematocrit 28.1 % (35.5-45.6); Hemoglobin 8.9 gm/dl (11.8-15.2); Lymphocytes # (Auto) 1.9 K/mm3 (1.2-5.4); Lymphocytes % (Auto) 12.7 % (13.4-35.0); Mean Corpuscular HGB Conc 32 % (32-34); Mean Corpuscular Volume 79 fl (84-94); Monocytes # (Auto) 1.3 K/mm3 (0.0-0.8); Monocytes % (Auto) 8.7 % (0.0-7.3); Platelet Count 348 K/mm3 (140-440); Red Blood Count 3.57 M/mm3 (3.65-5.03)
[2021-07-04 07:51] LABS: Red Cell Distribution Width 20.9 % (13.2-15.2)
[2021-07-04] MEDS: HYDROmorphone 1 MG/1 ML INJ IV PRN ×5 (08:46→23:56)
[2021-07-04] MEDS: MEGESTROL 40 MG TAB PO SCH ×5 (08:48→22:15)
[2021-07-04] MEDS: SODIUM CHLORIDE 0.9% 1000 ML 1,000 ML IV SCH (16:45)
--- NOTE | 2021-07-04 18:44 | XRay Report ---
. XR chest 1V ap INDICATION / CLINICAL INFORMATION: Follow-up right pneumonia. COMPARISON: 07/02/2021. FINDINGS: SUPPORT DEVICES: Stable, satisfactory device positioning. HEART /PULMONARY VASCULATURE: Stable. LUNGS / PLEURA: Mild blunting of the left costophrenic sulcus, may reflect small pleural effusion and adjacent atelectasis/airspace disease. Mild right basilar opacities are unchanged. No pneumothorax. IMPRESSION: New probable small left pleural effusion and adjacent atelectasis/airspace disease. Right basilar opa city is unchanged. Signer Name: Isaak Hdez MD Signed: 07/04/2021 6:40 PM Workstation Name: [id number]
[2021-07-05] MEDS: CEFEPIME/NS 2 GM/100 ML 2 GM/100 ML BAG IV SCH ×2 (01:12→13:51)
[2021-07-05] MEDS: MORPHINE 2 MG/1 ML INJ IV PRN ×3 (03:51→13:57)
[2021-07-05] MEDS: SODIUM CHLORIDE 0.9% 1000 ML 1,000 ML IV SCH ×2 (06:21→16:48)
[2021-07-05 07:34] LABS: Hematocrit 25.9 % (35.5-45.6); Hemoglobin 8.5 gm/dl (11.8-15.2); Mean Corpuscular HGB Conc 33 % (32-34); Mean Corpuscular Volume 78 fl (84-94); Platelet Count 358 K/mm3 (140-440); Red Blood Count 3.33 M/mm3 (3.65-5.03)
[2021-07-05 07:38] LABS: Red Cell Distribution Width 21.5 % (13.2-15.2)
[2021-07-05] MEDS: MEGESTROL 40 MG TAB PO SCH ×2 (09:01→13:58)
[2021-07-05 09:03] LABS: Band Neutrophils # (Manual) 0.2 K/mm3; Basophils % (Manual) 0 % (0.0-1.8); Eosinophils % (Manual) 0 % (0.0-4.3); Total Cells Counted 100
[2021-07-05 09:04] LABS: Anisocytosis 1+; Hypochromasia 1+; Platelet Estimate Consistent w Auto
[2021-07-05] MEDS: HYDROmorphone 1 MG/1 ML INJ IV PRN (11:00)
[2021-07-05] MEDS: ACETAMINOPHEN 325 MG TAB PO PRN ×2 (14:15→19:17)
[2021-07-05] MEDS: MEGESTROL 20 MG TAB PO SCH ×3 (14:18→22:58)
[2021-07-05] MEDS ORDERED: HYDROcodone/ACETAMINOPHEN 7.5-325MG TAB PO PRN (14:33)
[2021-07-05] MEDS ORDERED: ALPRAZolam 0.5 MG TAB PO PRN (14:44)
--- NOTE | 2021-07-05 14:53 | Progress Note ---
Assessment and Plan Assessment and plan: -- Acute sepsis due to right lower lobe pneumonia Current Visit: No Status: Acute Sepsis protocol: Chest x-ray, CBC, urinalysis, IV fluid resuscitation therapy, Continue cefepime , serial lactic acid level[improved], maintain mean arterial pressure greater than equal to 65, monitor urine output every shift, monitor fluid balance, blood cultures. Sepsis criteria;fever, leukocytosis, tachycardia, pneumonia on chest x-ray Lactic acidosis, brief hypotension, UTI per UA --Right lower lobe pneumonia Current Visit: No Status: Acute Pneumonia protocol: Continue IV cefepime, follow cultures Saturating well on room air Home O2 evaluation at discharge Follow-up chest x-ray :New probably small left pleural effusion and adjacent atelectasis disease right basilar opacity is unchanged --h/o Pancreatic cancer Current Visit: Yes Status: Chronic Supportive care. Outpatient oncology follow-up. Patient is currently undergoing palliative chemotherapy. --Severe anemia; Hb 6.1 -9.5 Current Visit: No Status: Acute Received total 2 units of PRBC Follow H&H today, additional PRBC transfusion as needed -- severe protein calorie malnutrition Current Visit: Yes Status: Acute Nutrition supplements, nutrition consult --Severe hypoalbuminemia; albumin 2.7 Current Visit: No Status: Chronic Nutrition supplements, supportive care -- diabetes Current Visit: Yes Status: Chronic Consistent carbohydrate diet, Accu-Chek, insulin protocol, hypoglycemia protocol. --Hyponatremia syndrome/resolved Current Visit: Yes Status: Acute Sodium levels within normal limits today -- Lactic acidosis; resolved Current Visit: Yes Status: Acute Trending down 4.4-2.5-1.10 Treat the underlying sepsis IV fluid resuscitation therapy, --Full code status - DVT prophylaxis Current Visit: Yes Status: Acute Plan to address problem: SCD to bilateral lower extremities while in bed --Advance care planning Current Visit: Yes Status: Acute Plan to address problem: Disease education data, care plan discussed, diagnoses discussed, prognosis discussed, patient is full code. Patient acknowledges understanding prognosis patient acknowledges understanding and agreement with current care plan. +30 minutes. We will closely monitor the patient and adjust management as needed Plan of care reviewed with the patient and his nurse 07/03: I called [facility] physician at [phone] and discussed in detail patient's condition, tests and reports, treatment plan had some questions I answered all of them, requested us to update tomorrow. 07/04; received total 2 units PRBC, Hb improved from 6.1-8.9, complains of from some generalized body pains Vital signs noted, follow-up chest x-ray monitor improvement of pneumonia. Called [facility] physician, on-call physician is busy with a critical patient, she requested to update on the patient tomorrow 07/05; patient slightly anxious low-grade fever, follow-up chest x-ray Discussed with [facility] physician Dr. Harshad Chow discussed in detail patient's condition tests and reports and treatment plan Advised to continue current management here with possible discharge in 1 to 2 days if stable History Interval history: I seen and examined the patient at the bedside this morning patient's chart and medications reviewed Patient was complaining of body pains says his pain medications are not working Low-grade fever, and mild distress Vital signs stable Hospitalist Physical - Constitutional Vitals: Temp Pulse Resp BP Pulse Ox 100.1 F H 81 16 114/78 97 07/05/21 14:26 07/05/21 10:52 07/05/21 10:52 07/05/21 10:52 07/05/21 10:52 General appearance: Present: mild distress, cachectic, disheveled, other (Malnourished chronically ill looking) - EENT Eyes: Present: PERRL, EOM intact - Neck Neck: Present: supple, normal ROM - Respiratory Respiratory effort: normal Respiratory: bilateral: diminished, negative: rales, rhonchi, wheezing - Cardiovascular Rhythm: regular Heart Sounds: Present: S1 & S2 - Extremities Extremities: no ischemia, No edema - Abdominal General gastrointestinal: soft, non-tender, non-distended, normal bowel sounds - Integumentary Integumentary: Present: clear, warm - Psychiatric Psychiatric: appropriate mood/affect, cooperative, other (Anxious) - Neurologic Neurologic: moves all extremities Results - Labs CBC & Chem 7: 07/05/21 06:00 07/03/21 07:06 Labs: Laboratory Last Values WBC 15.5 K/mm3 (4.5-11.0) H 07/05/21 06:00 RBC 3.33 M/mm3 (3.65-5.03) L 07/05/21 06:00 Hgb 8.5 gm/dl (11.8-15.2) L 07/05/21 06:00 Hct 25.9 % (35.5-45.6) L 07/05/21 06:00 MCV 78 fl (84-94) L 07/05/21 06:00 MCH 26 pg (28-32) L 07/05/21 06:00 MCHC 33 % (32-34) 07/05/21 06:00 RDW 21.5 % (13.2-15.2) H 07/05/21 06:00 Plt Count 358 K/mm3 (140-440) 07/05/21 06:00 Lymph % (Auto) 12.7 % (13.4-35.0) L 07/04/21 07:15 [place] % (Auto) 8.7 % (0.0-7.3) H 07/04/21 07:15 Eos % (Auto) 0.2 % (0.0-4.3) 07/04/21 07:15 Baso % (Auto) 0.2 % (0.0-1.8) 07/04/21 07:15 Lymph # (Auto) 1.9 K/mm3 (1.2-5.4) 07/04/21 07:15 [place] # (Auto) 1.3 K/mm3 (0.0-0.8) H 07/04/21 07:15 Eos # (Auto) 0.0 K/mm3 (0.0-0.4) 07/04/21 07:15 Baso # (Auto) 0.0 K/mm3 (0.0-0.1) 07/04/21 07:15 Add Manual Diff Complete 07/05/21 06:00 Total Counted 100 07/05/21 06:00 Seg Neutrophils % 78.2 % (40.0-70.0) H 07/04/21 07:15 Seg Neuts % (Manual) 84.0 % (40.0-70.0) H 07/05/21 06:00 Band Neutrophils % 1.0 % 07/05/21 06:00 Lymphocytes % (Manual) 5.0 % (13.4-35.0) L 07/05/21 06:00 Reactive Lymphs % (Man) 0 % 07/05/21 06:00 Monocytes % (Manual) 9.0 % (0.0-7.3) H 07/05/21 06:00 Eosinophils % (Manual) 0 % (0.0-4.3) 07/05/21 06:00 Basophils % (Manual) 0 % (0.0-1.8) 07/05/21 06:00 Metamyelocytes % 1.0 % 07/05/21 06:00 Myelocytes % 0 % 07/05/21 06:00 Promyelocytes % 0 % 07/05/21 06:00 Blast Cells % 0 % 07/05/21 06:00 Nucleated RBC % Not Reportable 07/05/21 06:00 Seg Neutrophils # 11.4 K/mm3 (1.8-7.7) H 07/04/21 07:15 Seg Neutrophils # Man 13.0 K/mm3 (1.8-7.7) H 07/05/21 06:00 Band Neutrophils # 0.2 K/mm3 07/05/21 06:00 Lymphocytes # (Manual) 0.8 K/mm3 (1.2-5.4) L 07/05/21 06:00 Abs React Lymphs (Man) 0.0 K/mm3 07/05/21 06:00 Monocytes # (Manual) 1.4 K/mm3 (0.0-0.8) H 07/05/21 06:00 Eosinophils # (Manual) 0.0 K/mm3 (0.0-0.4) 07/05/21 06:00 Basophils # (Manual) 0.0 K/mm3 (0.0-0.1) 07/05/21 06:00 Metamyelocytes # 0.2 K/mm3 07/05/21 06:00 Myelocytes # 0.0 K/mm3 07/05/21 06:00 Promyelocytes # 0.0 K/mm3 07/05/21 06:00 Blast Cells # 0.0 K/mm3 07/05/21 06:00 WBC Morphology Not Reportable 07/05/21 06:00 Hypersegmented Neuts Not Reportable 07/05/21 06:00 Hyposegmented Neuts Not Reportable 07/05/21 06:00 Hypogranular Neuts Not Reportable 07/05/21 06:00 Smudge Cells Not Reportable 07/05/21 06:00 Toxic Granulation Not Reportable 07/05/21 06:00 Toxic Vacuolation Not Reportable 07/05/21 06:00 Dohle Bodies Not Reportable 07/05/21 06:00 Pelger-Huet Anomaly Not Reportable 07/05/21 06:00 Graham Rods Not Reportable 07/05/21 06:00 Platelet Estimate Consistent w auto 07/05/21 06:00 Clumped Platelets Not Reportable 07/05/21 06:00 Plt Clumps, EDTA Not Reportable 07/05/21 06:00 Large Platelets Not Reportable 07/05/21 06:00 Giant Platelets Not Reportable 07/05/21 06:00 Platelet Satelliting Not Reportable 07/05/21 06:00 Plt Morphology Comment Not Reportable 07/05/21 06:00 RBC Morphology Not Reportable 07/05/21 06:00 Dimorphic RBCs Not Reportable 07/05/21 06:00 Polychromasia Not Reportable 07/05/21 06:00 Hypochromasia 1+ 07/05/21 06:00 Poikilocytosis Not Reportable 07/05/21 06:00 Anisocytosis 1+ 07/05/21 06:00 Microcytosis Not Reportable 07/05/21 06:00 Macrocytosis Not Reportable 07/05/21 06:00 Spherocytes Not Reportable 07/05/21 06:00 Pappenheimer Bodies Not Reportable 07/05/21 06:00 Sickle Cells Not Reportable 07/05/21 06:00 Target Cells Not Reportable 07/05/21 06:00 Tear Drop Cells Not Reportable 07/05/21 06:00 Ovalocytes Not Reportable 07/05/21 06:00 Helmet Cells Not Reportable 07/05/21 06:00 [place] Bodies Not Reportable 07/05/21 06:00 [place] Rings Not Reportable 07/05/21 06:00 [place] Cells Not Reportable 07/05/21 06:00 Bite Cells Not Reportable 07/05/21 06:00 Crenated Cell Not Reportable 07/05/21 06:00 Elliptocytes Not Reportable 07/05/21 06:00 Acanthocytes (Spur) Not Reportable 07/05/21 06:00 Rouleaux Not Reportable 07/05/21 06:00 Hemoglobin C Crystals Not Reportable 07/05/21 06:00 Schistocytes Not Reportable 07/05/21 06:00 Malaria parasites Not Reportable 07/05/21 06:00 Branden Bodies Not Reportable 07/05/21 06:00 Hem Pathologist Commnt No 07/05/21 06:00 Sodium 140 mmol/L (137-145) 07/03/21 07:06 Potassium 4.4 mmol/L (3.6-5.0) 07/03/21 07:06 Chloride 106.3 mmol/L (98-107) 07/03/21 07:06 Carbon Dioxide 23 mmol/L (22-30) 07/03/21 07:06 Anion Gap 15 mmol/L 07/03/21 07:06 BUN 15 mg/dL (9-20) 07/03/21 07:06 Creatinine 0.7 mg/dL (0.8-1.3) L 07/03/21 07:06 Estimated GFR > 60 ml/min 07/03/21 07:06 BUN/Creatinine Ratio 21 % 07/03/21 07:06 Glucose 91 mg/dL (75-100) 07/03/21 07:06 POC Glucose 155 mg/dL (70-105) H 07/05/21 11:00 Lactic Acid 1.10 mmol/L (0.7-2.0) 07/03/21 08:48 Calcium 8.3 mg/dL (8.4-10.2) L 07/03/21 07:06 Total Bilirubin 0.40 mg/dL (0.1-1.2) 07/02/21 10:29 AST 27 units/L (5-40) 07/02/21 10:29 ALT 14 units/L (7-56) 07/02/21 10:29 Alkaline Phosphatase 226 units/L (35-129) H 07/02/21 10:29 Total Protein 6.7 g/dL (6.3-8.2) 07/02/21 10:29 Albumin 2.7 g/dL (3.9-5) L 07/02/21 10:29 Albumin/Globulin Ratio 0.7 % 07/02/21 10:29 Urine Color Yellow (Yellow) 07/02/21 Unknown Urine Turbidity Clear (Clear) 07/02/21 Unknown Urine pH 5.0 (5.0-7.0) 07/02/21 Unknown Ur Specific [place] 1.020 (1.003-1.030) 07/02/21 Unknown Urine Protein 30 mg/dl mg/dL (Negative) 07/02/21 Unknown Urine Glucose (UA) Neg mg/dL (Negative) 07/02/21 Unknown Urine Ketones Neg mg/dL (Negative) 07/02/21 Unknown Urine Blood Mod (Negative) 07/02/21 Unknown Urine Nitrite Neg (Negative) 07/02/21 Unknown Urine Bilirubin Neg (Negative) 07/02/21 Unknown Urine Urobilinogen < 2.0 mg/dL (<2.0) 07/02/21 Unknown Ur Leukocyte Esterase Neg (Negative) 07/02/21 Unknown Urine WBC (Auto) 2.0 /HPF (0.0-6.0) 07/02/21 Unknown Urine RBC (Auto) 1.0 /HPF (0.0-6.0) 07/02/21 Unknown Urine Bacteria (Auto) 1+ /HPF (Negative) 07/02/21 Unknown Urine Mucus Few /HPF 07/02/21 Unknown Blood Type A POSITIVE 07/03/21 10:00 Antibody Screen Negative 07/03/21 10:00 Crossmatch See Detail 07/03/21 10:00 Microbiology: Microbiology 07/02/21 10:29 Peripheral/Venous Blood Culture - Preliminary 07/02/21 10:59 Peripheral/Venous Blood Culture - Preliminary 07/03/21 22:34 Urine,Clean Catch Urine Culture - Preliminary NO GROWTH AFTER 24 HOURS Garcia/IV: Voiding Method Toilet Active Medications - Current Medications Current Medications: Generic Name Dose Route Start Last Admin Trade Name Freq PRN Reason Stop Dose Admin Acetaminophen 650 mg 07/02/21 13:00 07/05/21 14:15 Acetaminophen 325 Mg Tab PO 650 mg Q4H PRN Administration Pain MILD(1-3)/Fever >100.5/HELMS Hydrocodone Bitart/Acetaminophen 1 each 07/05/21 14:33 Hydrocodone/Acetaminophen 7.5-325mg Tab PO Q6H PRN Pain, Moderate (4-6) Albuterol 2.5 mg 07/02/21 13:00 Albuterol 2.5 Mg/3 Ml Nebu IH Q4HRT PRN Shortness Of Breath Alprazolam 0.5 mg 07/05/21 14:44 Alprazolam 0.5 Mg Tab PO Q8H PRN Anxiety Cefepime HCl 2 gm in 100 mls @ 200 mls/hr 07/02/21 13:00 07/05/21 13:51 Cefepime/Ns 2 Gm/100 Ml IV 200 mls/hr Q12H YARELY Administration Protocol Sodium Chloride 1,000 mls @ 100 mls/hr 07/03/21 09:00 07/05/21 06:21 Nacl 0.9% 1000 Ml IV 100 mls/hr DIRECT YARELY Administration Megestrol Acetate 40 mg 07/05/21 14:00 07/05/21 14:18 Megestrol 20 Mg Tab PO Not Given QID YARELY Morphine Sulfate 2 mg 07/02/21 13:00 07/05/21 13:57 Morphine 2 Mg/1 Ml Inj IV 2 mg Q4H PRN Administration Pain, Moderate (4-6) Ondansetron HCl 4 mg 07/02/21 13:00 Ondansetron 4 Mg/2 Ml Inj IV Q8H PRN Nausea And Vomiting Oxycodone HCl 10 mg 07/05/21 14:45 Oxycodone Er 10 Mg Tab PO 07/05/21 14:46 QHS ONE Sodium Chloride 10 ml 07/02/21 13:00 07/05/21 09:01 Sodium Chloride 0.9% 10 Ml Flush Syringe IV 10 ml BID YARELY Administration Sodium Chloride 10 ml 07/02/21 13:00 Sodium Chloride 0.9% 10 Ml Flush Syringe IV PRN PRN LINE FLUSH Nutrition/Malnutrition Assess - Dietary Evaluation Nutrition/Malnutrition Findings: Nutrition Notes Start: 07/04/21 15:4 8 Freq: Status: Active Protocol: Document 07/04/21 15:48 ALLISON (Rec: 07/04/21 16:05 ALLISON [id number]) Nutrition Notes Need for Assessment generated from: MD Order Initial or Follow up Assessment Current Diagnosis Sepsis,Malnutrition Other Pertinent Diagnosis Pancreatic CA, Pneu, Anemia Current Diet Cardiac Labs/Tests Reviewed Pertinent Medications Megace Height 5 ft 8 in Weight 68.039 kg Usual Body Weight 81.8 kg [place] Body Weight (kg) 70.00 BMI 22.8 Intake Prior to Admission Poor Weight change and time frame Pt reports 16.8% unintentional wt loss since July 2020 Weight Status Appropriate Subjective/Other Information RD consulted for malnutrition. Pt reports generalized weakness and poor appetite since being on chemo (he is currently on palliative chemo) . He preferred soup for lunch today and says he would like some type of chicken soup with wheat bread on each meal tray . He is also willing to try Ensure Clear supplement, as he does not tolerate the regular Ensure. He says he has been taking Megace since April of this yr. Burn Absent Trauma Absent Current % PO Poor (25-49%) Minimum of two criteria Yes Energy Intake (severe) < or equal to 50% Estimated Energy Requirement > or equal to 5 days Interpretation of Weight Loss (severe) >10% in 6 months Protein-Calorie Malnutrition Severe #1 Nutrition Diagnosis Malnutrition Etiology pancreatic CA (on chemotherapy ), decreased appetite As Evidenced by Signs and Symptoms pt reports poor appetite and unintentional wt loss Is patient on ventilator? No Is Patient Ambulatory and/or Out of Bed Yes REE-([facility]-ambulatory/OOB) [ [id number] [id number]] Calculation Used for Recommendations [facility] Additional Notes Pro needs 1.2-1.5g/k-102g /day Fluid needs 1ml/kcal Nutrition Intervention Change Diet Order: Continue current diet order; honor food preferences Add Supplement/Snack (indicate name/kcal Ensure Clear BID /protein ) Provides kCal: 480 Provides Protein (gm) 16 Goal #1 PO tolerance Goal #2 PO intake of meals plus ONS to meet 100% energy and pro needs Goal #3 Wt maintenance and/or gain Anticipated Discharge Needs: Continue ONS 1-2 times daily for wt maintenance and additional protein intake Follow-Up By: 07/08/21 Additional Comments F/U: intakes (meals/ONS), wt
[2021-07-05] MEDS ORDERED: ENOXAPARIN 40 MG/0.4 ML INJ SUB-Q ONE (15:00)
--- NOTE | 2021-07-05 15:04 | Event Note ---
Date: 07/05/21 [address] with [facility] physician Dr. Harshad Chow discussed in detail patient's condition tests and reports and treatment plan Advised to continue current management here with possible discharge in 1 to 2 days if stable
[2021-07-05] MEDS ORDERED: ALPRAZolam 0.5 MG TAB PO ONE (16:00)
[2021-07-05] MEDS ORDERED: oxyCODONE ER 10 MG TAB PO ONE (22:00)
[2021-07-06] MEDS: CEFEPIME/NS 2 GM/100 ML 2 GM/100 ML BAG IV SCH ×2 (00:13→12:07)
[2021-07-06] MEDS: MORPHINE 2 MG/1 ML INJ IV PRN ×2 (06:13→11:08)
[2021-07-06] MEDS: SODIUM CHLORIDE 0.9% 1000 ML 1,000 ML IV SCH (06:13)
[2021-07-06 08:34] LABS: Basophils % (Auto) 0.2 % (0.0-1.8); Eosinophils % (Auto) 0.1 % (0.0-4.3); Hematocrit 33.2 % (35.5-45.6); Hemoglobin 10.4 gm/dl (11.8-15.2); Lymphocytes % (Auto) 24.7 % (13.4-35.0); Mean Corpuscular HGB Conc 31 % (32-34); Mean Corpuscular Volume 81 fl (84-94); Monocytes # (Auto) 0.4 K/mm3 (0.0-0.8); Monocytes % (Auto) 4.6 % (0.0-7.3); Platelet Count 348 K/mm3 (140-440); Red Blood Count 4.12 M/mm3 (3.65-5.03)
[2021-07-06 08:39] LABS: Red Cell Distribution Width 21.7 % (13.2-15.2)
[2021-07-06] MEDS: MEGESTROL 20 MG TAB PO SCH (12:07)
[2021-07-06 12:11] VITALS: BP 147/83
--- NOTE | 2021-07-06 13:07 | Discharge Summary ---
Providers - Providers Date of Admission: 07/02/21 12:25 Date of discharge: 07/06/21 Attending physician: SADI TOVAR 07/04/21 07:36 Consult to Dietitian/Nutrition [CONS] Routine Physician Instructions: Reason For Exam: Reason for Consult: Malnutrition Primary care physician: [employer] Hospitalization Reason for admission: Fever shortness of breath and cough of 2 days duration Condition: Stable Pertinent studies: Chest x-ray 07/02/2021 mild somewhat patchy right lower lung opacity concerning for mild pneumonia follow-up chest x-ray 07/04/2021 new probable small left pleural effusion and adjacent atelectasis airspace disease right hilar opacity is unchanged Hospital course: I cannot breathe and I have fever and I feel weak History of present illness: 56 YO Male with Pancreatic Cancer currently undergoing pallative chemotherapy, DM, Malnutrition was admitted through emergency room with complaints of fever shortness of breath, productive cough, generalized weakness and respiratory distress. Patient was found to have 101.7 F temperature with tachycardia. Chest x-ray showed right lower lobe pneumonia, and patient was in sepsis with the criteria of fever, tachycardia, and leukocytosis, lactic acidosis, x-ray findings consistent with right lower lobe pneumonia.Patient was started on cefepime, IV fluids and pain medications, blood and urine cultures were negative to date. Patient also anemic received 2 units of PRBC with significant improvement of H&H. Patient was saturating room air 97 to 98%, no indication for home oxygen Patient symptoms gradually but completely improved, today patient is afebrile no leukocytosis alert awake oriented Vital signs noted, physical examination did not show any new changes I periodically discussed with [place] physicians and updated them of his condition Today I will again talk to Dr. Lewis from [place] [facility] and updated and informed that we are discharging the patient Agreed with the discharge plan Patient received total 5 days of cefepime and will continue 5 days of oral cefdinir. Patient is hemodynamically and clinically stable at discharge Patient is stable at discharge Discharge diagnosis: --Sepsis due to right lower lobe pneumonia Current Visit: No Status: Acute Sepsis protocol: Chest x-ray, CBC, urinalysis, IV fluid resuscitation therapy, Continue cefepime , serial lactic acid level[improved], maintain mean arterial pressure greater than equal to 65, monitor urine output every shift, monitor fluid balance, blood cultures. Sepsis criteria;fever, leukocytosis, tachycardia, pneumonia on chest x-ray Lactic acidosis, brief hypotension, UTI per UA --Right lower lobe pneumonia Current Visit: No Status: Acute Pneumonia protocol: Continue IV cefepime, follow cultures Saturating well on room air Home O2 evaluation at discharge Follow-up chest x-ray :New probably small left pleural effusion and adjacent atelectasis disease right basilar opacity is unchanged --h/o Pancreatic cancer Current Visit: Yes Status: Chronic Supportive care. Outpatient oncology follow-up. Patient is currently undergoing palliative chemotherapy. --Severe anemia; Hb 6.1 -9.5 Current Visit: No Status: Acute Received total 2 units of PRBC Follow H&H today, additional PRBC transfusion as needed -- severe protein calorie malnutrition Current Visit: Yes Status: Acute Nutrition supplements, nutrition consult --Severe hypoalbuminemia; albumin 2.7 Current Visit: No Status: Chronic Nutrition supplements, supportive care -- diabetes Current Visit: Yes Status: Chronic Consistent carbohydrate diet, Accu-Chek, insulin protocol, hypoglycemia protocol. --Hyponatremia syndrome/resolved Current Visit: Yes Status: Acute Sodium levels within normal limits today -- Lactic acidosis; resolved Current Visit: Yes Status: Acute Trending down 4.4-2.5-1.10 Treat the underlying sepsis IV fluid resuscitation therapy, --Full code status - DVT prophylaxis Current Visit: Yes Status: Acute Plan to address problem: SCD to bilateral lower extremities while in bed Disposition: 01 HOME / SELF CARE / HOMELESS Final Discharge Diagnosis (Prints w/discharge instructions): Acute sepsis secondary to right lower lobe pneumonia. History of pancreatic cancer. Severe anemia requiring blood transfusion. Severe protein calorie malnutrition. Severe hypoalbuminemia. Diabetes mellitus. Hyponatremia resolved. Lactic acidosis resolved Time spent for discharge: 35 min Core Measure Documentation - Palliative Care Palliative Care/ Comfort Measures: Not Applicable - Core Measures Any of the following diagnoses?: none Exam - Constitutional Vitals: Temp Pulse Resp BP Pulse Ox 98.0 F 98 H 16 147/83 98 07/06/21 04:29 07/06/21 11:45 07/06/21 04:29 07/06/21 11:45 07/06/21 12:40 General appearance: Present: no acute distress, cachectic - EENT Eyes: Present: PERRL, EOM intact - Neck Neck: Present: supple, normal ROM - Respiratory Respiratory effort: normal Respiratory: bilateral: diminished, negative: rales, rhonchi, wheezing - Cardiovascular Rhythm: regular Heart Sounds: Present: S1 & S2 - Extremities Extremities: no ischemia, No edema - Abdominal General gastrointestinal: Present: soft, non-tender, non-distended, normal bowel sounds - Integumentary Integumentary: Present: clear, warm - Musculoskeletal Musculoskeletal: strength equal bilaterally - Psychiatric Psychiatric: appropriate mood/affect, cooperative - Neurologic Neurologic: moves all extremities Plan Activity: advance as tolerated, fall precautions Diet: regular Additional Instructions: He was saturating well on room air at 97%, no indication for home oxygen. Advised to follow-up with [place] [facility] primary care physician, oncology, pain management And other consultants per schedule. If you have worsening symptoms contact MD or go to the nearest emergency room as needed Follow up with: PRIMARY CARE,MD [Primary Care Provider] - 7 Days Prescriptions: Cefdinir 300 mg PO BID #10 cap Famotidine [Pepcid] 10 mg PO BID #30 tablet ALPRAZolam [Xanax TAB] 0.25 mg PO TID PRN #15 tab PRN Reason: Anxiety
--- NOTE | 2021-07-06 13:47 | Event Note ---
Date: 07/06/21 I called [facility] physician Dr. Lewis at [phone] and discussed in detail patient's condition, tests and reports, treatment plan, discharge planning I answered all her questions, agreed with the discharge plan. We will be discharging the patient on oral cefdinir, Pepcid and and Xanax for his anxiety Patient will follow with [facility] physicians per schedule Plan of care reviewed with the patient, his at the bedside, patient's nurse, case management,
[2021-07-06] MEDS ORDERED: ENOXAPARIN 40 MG/0.4 ML INJ SUB-Q SCH (22:00)
== END 2021-07-06 14:30 | disposition home or self-care (01) | DRG 871 ==
LOC: ED 09:56 → 3A 12:25
PROVIDERS: ADMIT Internal Medicine; ATTEND Internal Medicine
PROC: 30233N1 Transfusion of Nonautologous Red Blood Cells into Peripheral Vein, Percutaneous Approach (ICD-10-PCS; principal; 2021-07-03)
DX: A41.89 Other specified sepsis (principal); E43 Unspecified severe protein-calorie malnutrition; J18.9 Pneumonia, unspecified organism; E87.1 Hypo-osmolality and hyponatremia; E87.2 Acidosis; Z68.22 Body mass index [BMI] 22.0-22.9, adult; E11.9 Type 2 diabetes mellitus without complications; Z82.49 Family history of ischemic heart disease and other diseases of the circulatory system; D64.9 Anemia, unspecified; Z85.46 Personal history of malignant neoplasm of prostate; E88.09 Other disorders of plasma-protein metabolism, not elsewhere classified
CPT/HCPCS: 36415; 71045; 80048; 80053; 81001; 82140; 82962; 85007; 85014; 85018; 85025; 86850; 86900; 86901; 86920; 87040; 87086; G0378; J0692; J1170; J1650; J1956; J2270; J2543; J3370; J7030; J7040; P9016